=== PATIENT | female | born 1970 | race Caucasian/White ===

== ENCOUNTER → 2017-12-16 | Outpatient (CLI) | payer OTHER ==
[2017-12-16 14:30] LABS: Candida species (DNA Probe) Negative (NEGATIVE); G. vaginalis (DNA Probe) Negative (NEGATIVE); T. vaginalis (DNA Probe) Negative (NEGATIVE)
[2017-12-19 12:10] LABS: HPV Genotype 16 Not Detected (NOTDET); HPV Genotype 18 Not Detected (NOTDET)
[2017-12-21 08:00] LABS: HPV High Risk Other Not Detected (NOTDET)
[2017-12-22 12:22] LABS: Source CERVIX/ENDOCERVIX
== END ==
LOC: LAB SHORT 12:26 → LAB 12:26
PROVIDERS: Nurse Practitioner Family
DX: Z01.419 Encounter for gynecological examination (general) (routine) without abnormal findings (principal)
CPT/HCPCS: 87480; 87491; 87510; 87591; 87624; 87660; G0145

== ENCOUNTER 2025-01-03 22:54 | Emergency (ER) | payer OTHER ==
[~2025-01-03] VITALS: Ht 165.1 cm; Wt 97.5 kg
[~2025-01-03 22:54] MED LIST: ATOR10 PO; Aspir 8181 MG PO; Cymbalta20 MG; GABA400 PO; LISI20 PO; METO25ER PO
[2025-01-03 23:35] VITALS: BP 127/1
== END 2025-01-04 00:52 | disposition left against medical advice (07) ==
LOC: ER 22:54
DX: M25.571 Pain in right ankle and joints of right foot (principal); M25.572 Pain in left ankle and joints of left foot; R22.43 Localized swelling, mass and lump, lower limb, bilateral; Z53.21 Procedure and treatment not carried out due to patient leaving prior to being seen by health care provider